=== PATIENT | female | born 1990 | race Caucasian/White ===

== ENCOUNTER 2022-04-14 10:00 | Outpatient (RCR) | payer BC, SELFPAY | END 2022-06-02 15:45 | disposition home or self-care (01) | LOC: HO.PT 10:00 | PROVIDERS: Visit Provider Obstetrics & Gynecology | DX: M25.642 Stiffness of left hand, not elsewhere classified (principal); G56.01 Carpal tunnel syndrome, right upper limb; T14.8XXA Other injury of unspecified body region, initial encounter | CPT/HCPCS: 97110; 97112; 97140; 97161 ==